=== PATIENT | male | born 1990 | race Caucasian/White ===

== ENCOUNTER → 2017-12-22 | Outpatient (CLI) | payer BC ==
--- NOTE | 2017-12-23 18:33 | ECHOF ---
Referral Reason:R94.31 Abnormal EKG MEASUREMENTS -------- HEIGHT: 193.0 cm WEIGHT: 154.2 kg BP: 165/78 RVIDd: 2.8 cm (< 3.3) IVSd: 1.3 cm (0.6 - 1.1) LVIDd: 5.0 cm (3.9 - 5.3) LVPWd: 1.3 cm (0.6 - 1.1) IVSs: 1.5 cm LVIDs: 3.2 cm LVPWs: 1.7 cm LAESV Index (A-L): 20.45 ml/m Ao Diam: 2.9 cm (2.0 - 3.7) AV Cusp: 1.9 cm (1.5 - 2.6) LA Diam: 2.4 cm (2.7 - 3.8) MV E Vinicius: 0.77 m/s MV DecT: 227 ms MV A Vinicius: 0.50 m/s MV E/A Ratio: 1.54 RAP: 5.00 mmHg RVSP: 10.41 mmHg FINDINGS -------- Sinus rhythm. This was a technically adequate study. The left ventricular size is normal. There is mild concentric left ventricular hypertrophy. Overa ll left ventricular systolic function is normal with, an EF between 55 - 60 %. The right ventricle is normal in size and function. Normal LA size by volume 22+/-6 ml/m2. The right atrium is normal in size. The aortic valve is trileaflet, and appears structurally normal. No aortic stenosis or regurgitation. The mitral valve is normal. There is trace to mild mitral regurgitation. Trace tricuspid regurgitation present. Right ventricular systolic pressure is normal at < 35 mmHg. There is no evidence of pulmonary hypertension. The pulmonic valve is normal. The aortic root size is normal. Normal inferior vena cava with normal inspiratory collapse consistent with estimated right atrial pre ssure of 5 mmHg. There is no pericardial effusion. CONCLUSIONS -------- 1. Sinus rhythm. 2. This was a technically adequate study. 3. The left ventricular size is normal. 4. There is mild concentric left ventricular hypertrophy. 5. Overall left ventricular systolic function is normal with, an EF between 55 - 60 %. 6. Normal LA size by volume 22+/-6 ml/m2. 7. The aortic valve is trileaflet, and appears structurally normal. No aortic stenosis or regurgitati on. 8. There is trace to mild mitral regurgitation. 9. Trace tricuspid regurgitation present. 10. Right ventricular systolic pressure is normal at < 35 mmHg. 11. There is no evidence of pulmonary hypertension. 12. The aortic root size is normal. VICE PRESIDENT LENDING: Ron Kelsey RDCS
== END | disposition home or self-care (01) ==
LOC: RADECHMAIN 16:27
PROVIDERS: ATTEND Internal Medicine
DX: I34.0 Nonrheumatic mitral (valve) insufficiency (principal); I51.7 Cardiomegaly
CPT/HCPCS: 93306

== ENCOUNTER → 2021-01-03 | Outpatient (CLI) | payer SELFPAY | END | disposition home or self-care (01) | LOC: LABWHC1 16:39 | PROVIDERS: ATTEND Nurse Practitioner Family | DX: Z20.822 Contact with and (suspected) exposure to COVID-19 (principal) | CPT/HCPCS: U0003; C9803 ==

== ENCOUNTER 2021-01-10 18:17 | Emergency (ER) | payer OTHER ==
--- NOTE | 2021-01-10 19:26 | XR ---
EXAMINATION TYPE: XR chest 2V DATE OF EXAM: 01/10/2021 COMPARISON: NONE HISTORY: Fever. Short of breath TECHNIQUE: 2 views FINDINGS: Heart and mediastinum are normal. There is some patchy airspace infiltrate lateral aspect l eft lower lobe. Right lung is clear. There is no heart failure. Bony thorax is intact. There is upper thoracic dextroscoliotic deformity. IMPRESSION: Left lower lobe pneumonia. Normal heart. Thoracic scoliotic deformity.
[2021-01-10] MEDS ORDERED: IBUPROFEN 600 MG TAB PO STA (21:12)
[2021-01-10] MEDS ORDERED: ACETAMINOPHEN TAB 325 MG TAB PO STA (21:12)
--- NOTE | 2021-01-10 21:38 | ED ---
URI HPI - General Chief Complaint: Upper Respiratory Infection Stated Complaint: Sent by PCP/fever/nausea/headache Time Seen by Provider: 01/10/21 21:10 Source: patient, RN notes reviewed Mode of arrival: ambulatory Limitations: no limitations - History of Present Illness Initial Comments: Patient is a 30-year-old male that presents to emergency department complaining of Covid. He notes that he tested positive today on 01/10/2021 but his had symptoms for approximately a week. He notes that he does have dyspnea and a cough. He notes that he was sent here by his primary care to get monoclonal antibody therapy. He was in no apparent distress or pain while sitting in bed during exam and interview. He denied any chest pain headache nausea vomiting diarrhea constipation fatigue chills. - Related Data Home Medications Medication Instructions Recorded Confirmed Atenolol [Tenormin] 50 mg PO DAILY 01/10/21 01/10/21 Allergies Allergy/AdvReac Type Severity Reaction Status Date / Time No Known Allergies Allergy Verified 01/10/21 19:04 Review of Systems ROS Statement: Those systems with pertinent positive or pertinent negative responses have been documented in the HPI. ROS Other: All systems not noted in ROS Statement are negative. Past Medical History Past Medical History: Hypertension Additional Past Medical History / Comment(s): Covid 12/31 History of Any Multi-Drug Resistant Organisms: None Reported Additional Past Surgical History / Comment(s): nasal surgery Past Psychological History: No Psychological Hx Reported Smoking Status: Never smoker Past Alcohol Use History: Occasional Past Drug Use History: None Reported General Exam Limitations: no limitations General appearance: alert, in no apparent distress, obese Head exam: Present: atraumatic, normocephalic, normal inspection Eye exam: Present: normal appearance, PERRL, EOMI. Absent: scleral icterus, conjunctival injection, periorbital swelling ENT exam: Present: normal exam, mucous membranes moist Neck exam: Present: normal inspection. Absent: tenderness, meningismus, lymphadenopathy Respiratory exam: Present: normal lung sounds bilaterally. Absent: respiratory distress, wheezes, rales, rhonchi, stridor Cardiovascular Exam: Present: regular rate, normal rhythm, normal heart sounds. Absent: systolic murmur, diastolic murmur, rubs, gallop, clicks GI/Abdominal exam: Present: soft, normal bowel sounds. Absent: distended, tenderness, guarding, rebound, rigid Extremities exam: Present: normal inspection, full ROM, normal capillary refill. Absent: tenderness, pedal edema, joint swelling, calf tenderness Neurological exam: Present: alert, oriented X3, CN II-XII intact Psychiatric exam: Present: normal affect, normal mood Skin exam: Present: warm, dry, intact, normal color. Absent: rash Course Vital Signs 01/10/21 01/10/21 19:01 21:32 Temperature 101.9 F H 102.5 F H Pulse Rate 96 89 Respiratory 22 20 Rate Blood Pressure 159/96 171/90 O2 Sat by Pulse 98 96 Oximetry Medical Decision Making - Medical Decision Making 30-year-old male that tested positive for Covid today 01/10/2021. Chest x-ray: Left lower lobe pneumonia. Normal heart. Thoracic's scoliotic deformity. Patient educated and monoclonal antibody therapy informed that he meets the criteria, agreed to do the treatment. Case discussed with Dr. Salazar, patient can discharge home after treatment. - Radiology Data Radiology results: report reviewed, image reviewed Chest x-ray: Left lower lobe pneumonia. Normal heart. Thoracic's scoliotic deformity. Disposition Clinical Impression: COVID-19 Disposition: HOME SELF-CARE Condition: Stable Instructions (If sedation given, give patient instructions): Upper Respiratory Infection (ED), Coronavirus Disease 2019 (COVID-19) Additional Instructions: Please return to the Emergency Department if symptoms worsen or any other concerns. Follow-up with primary care she is possible. Per CBC guidelines and quarantine for 10-14 days from symptom onset. Take [id number] anti-inflammatories such as Tylenol Motrin for symptom control of fever and aches and pains. Is patient prescribed a controlled substance at d/c from ED?: No Referrals: Madyson Daly MD [Primary Care Provider] - 1-2 days Time of Disposition: 22:21
[2021-01-10] MEDS ORDERED: BAMLANIVIMAB (EUA) 700 MG, ETESEVIMAB (EUA) 1,400 MG in SODIUM CHLORIDE 0.9% 50 ML IVPB ONE (22:15)
[2021-01-10 23:59] VITALS: BP 168/77; PULSE 90; RESP 19; TEMP 98.9
== END 2021-01-10 23:59 | disposition home or self-care (01) ==
LOC: EC 18:17
DX: U07.1 COVID-19 (principal); I10 Essential (primary) hypertension
CPT/HCPCS: 71046; 99284; 96365; Q0245

== ENCOUNTER 2023-07-15 08:08 | Day surgery (SDC) | payer OTHER ==
[~2023-07-15 08:08] MED LIST: LACTATED RINGERS 1,000 ML IV SCH
[2023-07-15 08:40] VITALS: RESP 18; TEMP 97.1
[2023-07-15] MEDS ORDERED: LIDOCAINE 2% INJ 20 MG/ML (2 ML VIAL) ONE (09:03)
[2023-07-15] MEDS ORDERED: LIDOCAINE 2% (PF) 20 MG/ML 5 ML VIAL ONE (09:03)
[2023-07-15] MEDS ORDERED: PROPOFOL 10 MG/ML 20 ML VIAL IV ONE (09:03)
[2023-07-15] MEDS ORDERED: EPINEPHrine 10 ML SYRINGE (0.1 MG/ML) MISCELLANE ONE (09:20)
--- NOTE | 2023-07-15 09:36 | P.PCN ---
Date of Procedure: 07/15/23 Procedure(s) Performed: Brief history: Patient is a pleasant 32-year-old white male scheduled for an elective upper endoscopy as well as colonoscopy as a part of evaluation of I deficiency anemia. He was recently noted to have a hemoglobin of 9.09 and this is consistent with iron deficiency anemia. He denies any GI symptoms. Procedure performed: Esophagogastroduodenoscopy with cautery, injection epinephrine and Endo Clip placement Colonoscopy Preoperative diagnosis: Severe iron deficiency anemia Anesthesia: MAC Procedure: After informed consent was obtained from the patient was brought into the endoscopy unit and IV sedation was administered by anesthesia under continuous monitoring. Initially upper endoscopy was done. The Olympus GF 160 video endoscope was inserted inserted into the mouth and esophagus intubated without any difficulty and was gradually advanced into the stomach and duodenum and carefully examined. The bulb and second part of the duodenum appeared normal. The scope was then withdrawn into the stomach adequately insufflated with air and upon careful examination the antrum appeared normal. In the body the stomach along the lesser curvature there was a small area with some blood clot noted. At that was washed and the blood clot there was actively oozing arterial venous malformation identified. Initially I cauterized using a gold probe with no success. Subsequently I injected 1 in 10,000 epinephrine and total of 4 mL was injected and still was not able to achieve any adequate hemostasis. At this time I proceeded with Endo Clip placement and total of 360. And finally hemostasis was achieved. Rest of the body, cardia and fundus appeared normal. The scope was then withdrawn into the esophagus. The GE junction was located at 40 cm to the incisors. It appeared irregular with a short tongue of Mckenna's appearing mucosa extending 3 mm proximal to the GE junction which was biopsied. Rest of esophagus appeared normal and the patient tolerated the procedure well. At this time the patient continued to remain sedation. Initial digital rectal examination was normal. Olympus CF 160 video colonoscope was then inserted into the rectum and gradually advanced to the cecum without any difficulty. Careful examination was performed as the scope was gradually being withdrawn. The prep was excellent. The cecum, ascending colon, transverse colon, descending colon, sigmoid colon and rectum appeared normal. Retroflexion was performed in the re ctum and weight 2 internal hemorrhoids were noted. Patient tolerated the procedure well. Impression: 1. 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 Colonoscopy revealed grade 2 internal hemorrhoids Recommendations: Findings of this examination were discussed with the patient as well as his family. He was advised to continue with iron supplements daily. He will be started on Protonix 40 mg daily. Continue with iron supplements and monitor CBC on a monthly basis. Follow up in office in one month.
[2023-07-15] MEDS ORDERED: MORPHINE SULFATE 4 MG/ML SYRINGE ONE (10:55)
[2023-07-15] MEDS ORDERED: MORPHINE SULFATE 4 MG/ML SYRINGE IVP ONE ×2 (11:02→11:03)
--- NOTE | 2023-07-15 11:33 | XR ---
EXAMINATION TYPE: XR abdomen 1V DATE OF EXAM: 07/15/2023 COMPARISON: NONE HISTORY: Pain TECHNIQUE: Single radiograph is submitted utilizing the portable upright technique of the upper abdom en. FINDINGS: This study fails to demonstrate evidence for pneumoperitoneum. Air distended left hemicolon and trans verse colon. IMPRESSION: 1. As above
[2023-07-15 12:34] VITALS: BP 123/84; PULSE 84
== END 2023-07-15 12:30 | disposition home or self-care (01) ==
LOC: ORWHC2ENDO 08:08
PROVIDERS: ATTEND Internal Medicine Gastroenterology
DX: K20.90 Esophagitis, unspecified without bleeding (principal); K22.70 Barrett's esophagus without dysplasia; K64.1 Second degree hemorrhoids; Q27.30 Arteriovenous malformation, site unspecified; I10 Essential (primary) hypertension; Z79.810 Long term (current) use of selective estrogen receptor modulators (SERMs)
CPT/HCPCS: 43270; 88305; 74018; 45378; 43239; 43255; 43236; J2270; J0171; J2704; J2001; 43243